=== PATIENT | male | born 1960 | race Caucasian/White ===

== ENCOUNTER → 2018-12-30 | Day surgery (SDC) | payer MEDICAID ==
[~2018-12-30] MED LIST: Acetaminophen/HYDROcodone 325-5 MG Tab PO ONE; Bupivacaine 0.5%/EPINEPHrine 1:200,000 50 ML MDV ONE; Dexamethasone 4 MG/ML SDV ONE; Glycopyrrolate 0.2 MG/ML 5 ML MDV ONE; Lactated Ringers 1,000 ML IV SCH; Midazolam 1 MG/ML 2 ML SDV ONE; Neostigmine Methylsulfate 1 MG/ML 5 ML Syringe ONE; Nozin Nasal Sanitizer NASBOTH ONE; Ondansetron 4 MG/2 ML SDV ONE; Propofol 200 MG/20 ML SDV ONE; Rocuronium 50 MG/5 ML Vial ONE; ceFAZolin 1 GM in Premix Bag 1 BAG IV ONE; fentaNYL 250 MCG/5 ML SDV ONE
--- NOTE | 2018-12-30 17:27 | OR ---
CORRECT COPY DATE OF PROCEDURE: 12/30/2018 PREOPERATIVE DIAGNOSES: 1. Gouty tophi deposits, left triceps tendon 2. Olecranon bursitis. POSTOPERATIVE DIAGNOSES: 1. Gouty tophi deposits, left triceps tendon. 2. Mild olecranon bursitis. PROCEDURE PERFORMED: Excision of olecranon bursa and debridement of tophaceous gouty deposits from triceps tendon. ANESTHESIA: General. INDICATIONS: Mr. Lyle is a 58-year-old gentleman with a history of chronic pain in his left elbow for the past several months. Examination and MRI are consistent with tophaceous gout within the triceps tendon. This is symptomatic despite treatment with anti - inflammatories. He has also tried allopurinol in the past with no significant improvement. He now presents for debridement of the tophaceous gouty deposits and excision of olecranon bursa. Risks, benefits, potential complications of the procedure were discussed and agrees to proceed. PROCEDURE IN DETAIL: After adequate anesthesia was obtained, the patient was placed supine with a tourniquet about the left upper arm. Arm was prepped and draped in a sterile fashion and then exsanguinated and the tourniquet was inflated to 250 mmHg. A longitudinal incision was made directly over the olecranon and carried slightly proximally. This was carried down to subcutaneous tissues. Minimal bursitis was present. Inspection of the triceps tendon at its insertion revealed white deposits within the tendon consistent with gouty tophi. A portion of the more superficial material was excised sharply with a scalpel. Several small slits were then made in line with the fibers of the tendon directly over the largest deposits. A curette was then used to mechanically debride the remaining portions of the deposit from the substance of the triceps tendon. This was done in approximately 3 locations with deposits of varying size within the tendon. The area was then irrigated. Further debridement was then done with a curette removing all visible deposits. I had discussed the possibility of removing an olecranon bone spur that was present. However, this would have required splitting more of the triceps tendon, and due to the damage present from the gouty deposits and the possibility of weakening the tendon more, a decision was made not to proceed with this. The longitudinal splits in the triceps were then repaired in a [id number] fashion using #1 Vicryl. Tourniquet was then released. Hemostasis was obtained with electrocautery. Wound was irrigated again and any remaining bleeding controlled with electrocautery. The skin was then closed with 2-0 Vicryl and a running 3-0 Monocryl. Steri-Strips were applied. The skin was then infiltrated with 0.5% Marcaine. A light compressive dressing was then applied. The patient tolerated the procedure well. There were no complications. He was taken from the operating room in a stable condition. ADDENDUM: Total area of debridement is 6x8 mm. Vitaliy Johns MD /[id number] CHARAN
== END ==
LOC: JP.SDS 07:48
PROVIDERS: ATTEND Specialist
DX: M1A.0221 Idiopathic chronic gout, left elbow, with tophus (tophi) (principal); Z79.1 Long term (current) use of non-steroidal anti-inflammatories (NSAID); Z79.899 Other long term (current) drug therapy
CPT/HCPCS: 11043; 36415; 80048; 85027; 88304; A9270; J0690; J1100; J2250; J2405; J2704; J3010; J3490; J7120; J2710

== ENCOUNTER 2019-03-18 07:09 | Day surgery (SDC) | payer MEDICAID ==
[2019-03-18] MEDS ORDERED: fentaNYL 100 MCG/2 ML SDV ONE (07:10)
[2019-03-18] MEDS ORDERED: Propofol 200 MG/20 ML SDV ONE (07:10)
[2019-03-18] MEDS ORDERED: Midazolam 1 MG/ML 2 ML SDV ONE (07:10)
[2019-03-18] MEDS ORDERED: Sodium Chloride 0.9% 1,000 ML IV SCH (07:30)
--- NOTE | 2019-03-18 11:33 | PROC ---
DATE OF PROCEDURE: 03/18/2019 SURGEON: Vitaliy Harper MD INDICATION: César is a 58-year-old male, comes in for a screening colonoscopy. The risks and benefits were explained to the patient and was taken to the OR. DESCRIPTION OF PROCEDURE: Anesthesia was given by nurse signal processing engineer. We used 2 mg of Versed, 100 mcg of fentanyl and 200 mg of propofol. The Olympus 180AL scope was used. It was placed into the rectum and passed under direct vision and we did get to the cecum with some external pressure. Upon retraction of the tube, we noted no lesions, ulcerations or abnormalities throughout the entire colon and the tube was removed. The patient tolerated the procedure well. The rectum was evaluated prior to the procedure. The prostate was a grade 3/6, symmetrical, and soft. PREOPERATIVE DIAGNOSIS: Screening colonoscopy. POSTOPERATIVE DIAGNOSIS: Normal colon from cecum to rectum. Routine screening should be done for this gentleman. Vitaliy Harper MD /[id number]
== END 2019-03-18 09:30 | disposition home or self-care (01) ==
LOC: JP.SDS 07:09
PROVIDERS: ATTEND Internal Medicine
DX: Z12.11 Encounter for screening for malignant neoplasm of colon (principal); N20.0 Calculus of kidney
CPT/HCPCS: 45378; J2250; J2704; J3010; J7030